=== PATIENT | female | born 1990 | race Caucasian/White ===

== ENCOUNTER 2018-10-20 06:48 | Day surgery (SDC) | payer OTHER ==
[2018-10-20] MEDS ORDERED: Propofol 200 MG/20 ML SDV ONE (07:04)
[2018-10-20] MEDS ORDERED: Midazolam 1 MG/ML 2 ML SDV ONE (07:04)
[2018-10-20] MEDS ORDERED: fentaNYL 100 MCG/2 ML SDV ONE (07:04)
[2018-10-20] MEDS ORDERED: Lactated Ringers 1,000 ML IV SCH (07:45)
[2018-10-20] MEDS ORDERED: Glycopyrrolate 0.2 MG/ML 2 ML SDV IVPUSH ONE (08:00)
[2018-10-20] MEDS ORDERED: Dexamethasone 4 MG/ML SDV ONE (08:22)
[2018-10-20] MEDS ORDERED: Cyanocobalamin (Vitamin B12) 1,000 MCG/ML SDV IM ONE (08:45)
[2018-10-20] MEDS ORDERED: MVI, Adult with Vitamin K 10 ML, Thiamine 200 MG, Chromium/Copper/Mang/Selen/Zn 1 ML in... IV ONE ×4 (08:45)
--- NOTE | 2018-10-31 14:57 | OR ---
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 OPERATIVE PROCEDURE: Upper GI endoscopy with dilation of gastrojejunostomy ([id number]). ANESTHESIA: IV sedation. 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 The plan is to proceed with upper GI endoscopy with dilation as indicated. Potential risks including bleeding and perforation were discussed, and the patient wishes to proceed. DETAILS OF PROCEDURE: The patient was taken to the operating room and placed in a left lateral decubitus position. IV sedation was administered, after which the upper GI endoscope was passed orally through the length of the esophagus and into the gastric pouch. No retained food or fluid was noted. The patient was noted to have a moderate stricture at gastrojejunostomy with 1 cm scope not quite being able to be passed through the anastomosis. A Bard gastrointestinal catheter was then centered across the anastomosis using fluoroscopic surveillance and inflated to 36-Jamaican size and then the balloon catheter was held in position for 1 minute, after which it was deflated and withdrawn. Adequate dilation was then confirmed endoscopically with no other complications. The patient was taken to the recovery room in satisfactory condition. Zhen Vick MD /[id number]
== END 2018-10-20 11:13 | disposition home or self-care (01) ==
LOC: JP.SDS 06:48
PROVIDERS: ATTEND Surgery
DX: K91.89 Other postprocedural complications and disorders of digestive system (principal); E66.9 Obesity, unspecified; Z98.84 Bariatric surgery status
CPT/HCPCS: 43245; 81025; J1100; J2250; J2704; J3010; J3411; J3420; J3490; J7120